=== PATIENT | female | born 1995 | race Caucasian/White ===

== ENCOUNTER 2017-05-19 16:04 | Emergency (ER) | payer OTHER ==
[~2017-05-19] VITALS: Ht 162.6 cm; Wt 99.0 kg
[~2017-05-19 16:04] MED LIST: PENI500T PO; TRAM50 PO; Z.0.NO CURRENT MEDS
[2017-05-19 16:12] VITALS: BP 141/83; PULSE 98; RESP 17; TEMP 99; O2SAT 98
[2017-05-19] MEDS ORDERED: AMOX500C PO (17:54)
--- NOTE | 2017-05-19 17:55 | PD ---
HPI Chief Complaint: ENT Complaint Time Seen by Provider: 17:16 Travel History International Travel<30 days: No Contact w/Intl Traveler<30days: No Traveled to known affect area: No History of Present Illness HPI 22 old female with sore throat, fever, ear pain 4 days. Symptoms are unrelieved with [id number] cough, medicine. He denies sick contacts. Symptom severity is mild. She has no other symptoms. PFSH Past Medical History Medical History: Denies Significant Hx Diminished Hearing: No Immunizations Current: Yes Tetanus Vaccination: Unknown Influenza Vaccination: No ?: Not LMP: 04/30/2017 Social History Alcohol Use: No Tobacco Use: No Substance Use: No Allergies-Medications (Allergen,Severity, Reaction): Coded Allergies: No Known Allergies (Verified Adverse Reaction, Unknown, 05/19/17) Reported Meds & Prescriptions Reported Meds & Active Scripts Active Ultram (Tramadol HCl) 50 Mg Tab 1 Tab PO Q6 PRN FOR PAIN Pen-Vee K (Penicillin V Potassium) 500 Mg Tab 500 Mg PO Q6 10 Days Reported No Current Meds (Miscellaneous Medication) Misc Review of Systems Except as stated in HPI: all other systems reviewed are Neg Physical Exam Narrative GENERAL: Alert well-appearing female SKIN: Warm and dry. HEAD: Normocephalic. EYES: No scleral icterus. No injection or drainage. MOUTH: Pharyngeal erythema with tonsillar hypertrophy and exudate ear: Left TM erythema, bulging, loss of landmarks. No perforation. NECK: Supple, trachea midline. No JVD or lymphadenopathy. CARDIOVASCULAR: Regular rate and rhythm without murmurs, gallops, or rubs. RESPIRATORY: Breath sounds equal bilaterally. No accessory muscle use. Data Data Last Documented VS Vital Signs Date Time Temp Pulse Resp B/P (MAP) Pulse Ox O2 Delivery O2 Flow Rate FiO2 05/19/17 16:12 99.0 98 17 141/83 (102) 98 MDM Medical Decision Making Medical Screen Exam Complete: Yes Emergency Medical Condition: Yes Differential Diagnosis Strep pharyngitis, otitis media, influenza, URI Narrative Course 22-year-old female with sore throat, fever, left earache 4 days. She has pharyngeal erythema, tonsillar hypertrophy with exudate. Uvula is midline. Airway is patent. Patient be treated for pharyngitis. Diagnosis Primary Impression: Pharyngitis Qualified Codes: J02.9 - Acute pharyngitis, unspecified Referrals: Primary Care Physician Additional Instructions: Take [id number] Tylenol Motrin as needed for pain and fever. Stay well hydrated by drinking plenty of fluids. Scripts Amoxicillin (Amoxicillin) 500 Mg Cap 500 MG PO TID for Infection for 10 Days, CAP 0 Refills Prov: Cathryn Levine 05/19/17 Disposition: 01 DISCHARGE HOME Condition: Stable Cathryn Levine May 19, 2017 17:55
== END 2017-05-19 18:20 | disposition home or self-care (01) ==
LOC: PHEFT 16:04
DX: J02.9 Acute pharyngitis, unspecified (principal); H92.02 Otalgia, left ear
CPT/HCPCS: 99283